=== PATIENT | female | born 1940 | race Caucasian/White ===

== ENCOUNTER 2021-12-20 05:19 | Observation (INO) | payer OTHER ==
[~2021-12-20] VITALS: Ht 172.7 cm; Wt 82.2 kg
[2021-12-20 05:19] VITALS: BP 181/127
--- NOTE | 2021-12-20 05:23 | NUR ---
PT BIBA ALS ER BED 8
--- NOTE | 2021-12-20 05:30 | NUR ---
PER PATIENT SHE ALSO HAS HX OF RENAL PROBLEMS BUT IS NOT CURRENTLY GETTING TX OR DIALYSIS. PT HAS DM, NO MEDICATION TAKEN. MANAGES THROUGH DIET. SHE IS ABLE TO AMBULATE WITH ASSISTANCE. USES A WALKER AT HOME.
--- NOTE | 2021-12-20 05:30 | NUR ---
IV ESTABLISHED 20G RIGHT FA, BLOOD COLLECTED AND SWAB COLLECTED. WALKED TO LAB
--- NOTE | 2021-12-20 05:30 | NUR ---
81/BIBA FROM HOME WITH C/O DIFF OF BREATHING , COUGH . PT ON NON REBREATHER 15 L, 86% SAO2 WHEN ARRIVED TO THE ED. PATIENT STATED COUGH/SOB STARTED YESTERDAY BUT EXACERBATED THIS MORNING. PATIENT STATED SHE HAS COPD AND USES OXYGEN AT HOME. DENIES ANYONE AT HOME BEING SICK. PATIENT DENIES N/V/D/C/CP/FEVER AT THIS TIME. RT AT BEDSIDE, PLACED ON NC 6L. PATIENT APPEARS TO BE CONGESTED AND HAS A PRODUCTIVE COUGH. PT RR APPEAR TO BE EVEN AND LABORED AT THIS TIME. PATIENT EKG TACHY @128 AND DIAPHORETIC. SKIN APPEARS INTACT BUT HAS SOME DISCOLORATION. CAP REFIL <3SEC. PATIENT PLACED IN GOWN AND CADMIUM PLATER. COVERED WITH BLANKET. BED LOW AND LOCKED. PHIL SIDE RAILS UP FOR SAFETY. MD AT BEDSIDE ASSESSING PATIENT. PMHX COPD, DM, FIBROMYALGIA, HTN MEDS SEE MED REC. NKA
--- NOTE | 2021-12-20 05:34 | NUR ---
DR HINTON EXAM. PT
[2021-12-20] MEDS ORDERED: methylPREDNISolone SS 125 MG/2 ML VIAL IVP ONE (05:40)
[2021-12-20] MEDS ORDERED: ALBUTEROL SULFATE/IPRATROPIU 3 ML SOL IH ONE (05:40)
--- NOTE | 2021-12-20 05:53 | NUR ---
RT AT [facility]
--- NOTE | 2021-12-20 06:02 | NUR ---
RAD AT BEDSIDE
--- NOTE | 2021-12-20 06:02 | NUR ---
RT AT BEDSIDE
[2021-12-20 06:15] LABS: BASOPHILS # (AUTO) 0.1 K/uL (0.00-0.22); BASOPHILS % (AUTO) 0.7 % (0.0-2.0); EOSINOPHILS % (AUTO) 0.1 % (0.0-4.0); HEMATOCRIT 35.6 % (36-48); HEMOGLOBIN 11.3 g/dL (12.0-16.0); LYMPHOCYTES # (AUTO) 0.9 K/uL (2.5-16.5); LYMPHOCYTES % (AUTO) 5.8 % (20.5-51.1); MEAN CORPUSCULAR HEMOGLOBIN 27 pg (27-31); MEAN CORPUSCULAR HGB CONC 32 g/dL (33-37); MEAN CORPUSCULAR VOLUME 86.1 fL (80-94); MONOCYTES # (AUTO) 1.1 K/uL (0.8-1.0); MONOCYTES % (AUTO) 7.1 % (1.7-9.3); NEUTROPHILS # (AUTO) 13.5 K/uL (1.8-7.7); PLATELET COUNT (AUTO) 191 K/uL (140-450); RED BLOOD CELL COUNT(AUTO) 4.13 MIL/uL (4.20-5.40); RED CELL DISTRIBUTION WIDTH 16.2 % (11.6-13.7); WHITE BLOOD COUNT (AUTO) 15.6 K/uL (4.8-10.8)
[2021-12-20] MEDS ORDERED: FUROSEMIDE 40 MG/4 ML VIAL IVP ONE (06:15)
--- NOTE | 2021-12-20 06:15 | NUR ---
SPOKE TO DAUGHTER HALIE AND UPDATED ON PATIENTS STATUS. WOULD LIKE TO BE UPDATED ON STATUS.
[2021-12-20] MEDS ORDERED: CYCL-711 PO (06:21)
[2021-12-20] MEDS ORDERED: PRON INH (06:21)
[2021-12-20] MEDS ORDERED: PREG150C PO (06:21)
[2021-12-20] MEDS ORDERED: TRAM50TA1 PO (06:21)
[2021-12-20] MEDS ORDERED: AMLO10TA PO (06:21)
[2021-12-20] MEDS ORDERED: AMAN50SY PO (06:21)
[2021-12-20 06:32] LABS: PROTHROMBIN TIME 10.9 secs (10.8-13.4)
[2021-12-20 06:35] LABS: NEUTROPHILS % (AUTO) 86.3 % (42.2-75.2)
--- NOTE | 2021-12-20 06:35 | NUR ---
REPOSITONED PATIENT IN BED FOR COMFORT. HOB ELEVATED WITH NC ON 6/L. PHIL SIDE RAILS UP FOR SAFETY.
[2021-12-20] MEDS ORDERED: AZITHROMYCIN 500 MG in DEXTROSE 5% 250 ML IV ONE (06:45)
[2021-12-20] MEDS ORDERED: cefTRIAXone 1,000 MG VIAL ONE (06:47)
[2021-12-20 06:49] LABS: ALBUMIN 3.1 g/dL (3.4-5.0); ANION GAP 13.1 (8-16); ASPARTATE AMINOTRANSFERASE 24 U/L (15-37); CARBON DIOXIDE 30.6 mmol/L (21-32); CHLORIDE 102 mmol/L (98-107); CREATININE 1.3 mg/dL (0.6-1.3); GLUCOSE 127 mg/dL (74-106); POTASSIUM 3.7 mmol/L (3.5-5.1); SODIUM SERUM 142 mmol/L (136-145); TOTAL BILIRUBIN 0.8 mg/dL (0.0-1.0); UREA NITROGEN, BLOOD 19 mg/dL (7-18)
--- NOTE | 2021-12-20 06:59 | NUR ---
REPOSITONED PATIENT IN BED FOR COMFORT. HOB ELEVATED WITH NC ON 6/L. PHIL SIDE RAILS UP FOR SAFETY.
[2021-12-20] MEDS ORDERED: AZITHROMYCIN 500 MG INJ VIAL IV ONE (07:01)
--- NOTE | 2021-12-20 07:15 | NUR ---
SPOKE TO ALMOND SORTER MYKEL. GAVE CLINICALS. STATED SHE WOULD CALL BACK WITH AUTHORIZATION NUMBER
--- NOTE | 2021-12-20 07:15 | NUR ---
REPORT GIVEN TO SHANNAN ROMAN. TRANSFER OF CARE.
--- NOTE | 2021-12-20 07:16 | NUR ---
REPORT RECEIVED FROM ALLI CAMPBELL. ASSUMED CARE AT THIS TIME
--- NOTE | 2021-12-20 07:30 | NUR ---
SPOKE TO MYKEL RECEIVED AN AUTHORIZATION NUMBER FOR ADMISSION UNDER OBSERVATION UNTIL CLINICALS ARE RECEIVED. THEN THEY WOULD UPDATE STATUS. AUTHORIZATION NUMBER [id number] FAX NUMBER [phone]
[2021-12-20] MEDS ORDERED: ASPIRIN 325 MG TAB PO ONE (07:40)
[2021-12-20] MEDS ORDERED: ENOXAPARIN 80 MG/0.8 ML SYR SUBQ ONE (07:40)
[2021-12-20 08:18] LABS: APPEARANCE,URINE CLEAR (CLEAR); BILIRUBIN,URINE NEGATIVE (NEGATIVE); BLOOD, URINE TRACE-I (NEGATIVE); COLOR,URINE YELLOW (YELLOW); LEUKOCYTE ESTERASE ,URINE NEGATIVE (NEGATIVE); NITRITE, URINE NEGATIVE (NEGATIVE); PH,URINE 5.5 (5.0-9.0); UGLUCOSE NEGATIVE (NEGATIVE)
--- NOTE | 2021-12-20 08:25 | NUR ---
PT GOWN AND LINENS CHANGED. PUREWICK IN PLACE
--- NOTE | 2021-12-20 08:30 | NUR ---
PT PROVIDED WITH BREAKFAST. PT AWAKE AND EATING IN BED
[2021-12-20 08:54] LABS: OTHER CASTS, URINE None Seen /LPF (None Seen); RBC,URINE 0-5 /HPF (0-5)
[2021-12-20] MEDS ORDERED: DOCUSATE SODIUM 100 MG GELCAP PO PRN (09:00)
[2021-12-20] MEDS ORDERED: ONDANSETRON 4 MG/2 ML VIAL IM/IVP PRN (09:00)
[2021-12-20] MEDS ORDERED: ACETAMINOPHEN 325 MG TAB PO PRN (09:00)
[2021-12-20] MEDS ORDERED: ALBUTEROL 0.083% 2.5 MG/3 ML NEBU INH PRN (09:05)
[2021-12-20] MEDS ORDERED: CYCLOBENZAPRINE 10 MG TAB PO PRN (09:05)
[2021-12-20] MEDS: METOPROLOL 25 MG TAB PO SCH ×2 (09:45→20:54)
[2021-12-20] MEDS: lisinopriL 5 MG TAB PO SCH (09:46)
--- NOTE | 2021-12-20 09:59 | NUR ---
LAB AT BEDSIDE Addendum: 12/20/21 at 0959 by PHSEP TROPONIN RE DRAW
[2021-12-20 10:25] LABS: WBC,URINE 0-5 /HPF (0-5)
[2021-12-20 10:38] LABS: MAGNESIUM 1.5 mg/dL (1.8-2.4); PHOSPHORUS 3.9 mg/dL (2.5-4.9)
--- NOTE | 2021-12-20 10:51 | NUR ---
DR TOVAR AT BEDSIDE FOR EVALUATION
--- NOTE | 2021-12-20 12:00 | NUR ---
PT PROVIDED WITH LUNCH. PT AWAKE AND EATING IN BED
--- NOTE | 2021-12-20 14:13 | NUR ---
ULTRASOUND AT BEDSIDE
[2021-12-20] MEDS: methylPREDNISolone SS 40 MG/ML VIAL IVP SCH ×2 (15:30→20:53)
[2021-12-20] MEDS: LEVOFLOXACIN 500 MG/D5W PREMIX 100 ML IV SCH (15:32)
[2021-12-20] MEDS: FUROSEMIDE 40 MG/4 ML VIAL IVP SCH (17:06)
--- NOTE | 2021-12-20 17:55 | NUR ---
PT SWABBED FOR COVID(NOVEL). SPECIMEN WALKED TO LAB
--- NOTE | 2021-12-20 17:57 | NUR ---
PT PROVIDED WITH DINNER. PT AWAKE, REPOSITIONED AND SITTING UP IN BED
[2021-12-20] MEDS: ALBUTEROL SULFATE/IPRATROPIU 3 ML SOL IH SCH (19:00)
[2021-12-20] MEDS: BUDESONIDE 0.5 MG/2 ML NEBU INH SCH (19:30)
--- NOTE | 2021-12-20 19:30 | NUR ---
IV ESTABLISHED 22G LEFT FA
--- NOTE | 2021-12-20 19:30 | NUR ---
REPORT GIVEN TO ALLI CAMPBELL. TRANSFER OF CARE AT THIS TIME
--- NOTE | 2021-12-20 19:50 | NUR ---
Patient will be admitted to care of MD TOVAR. Admited to TELEMETRY. Will go to room 124B. Belongings list completed. Report to BLAIR BAKER.
[2021-12-20 20:05] VITALS: BP 165/65
--- NOTE | 2021-12-20 20:05 | NUR ---
RECEIVED REPORT FROM ER NURSE, PATIENT AMBULATED TO THE BED WITH ASSIST, STEADY GAIT. NOTED TO BE SHORT OF BREATH, ON 6L NASAL CANNULA SAT 93%. PATIENT IS AWAKE,ALERT AND ORIENTED. DENIES PAIN. SKIN WARM, AND DRY TO TOUCH. ORIENTED TO MST ROUTINE, UPDATED WHITEBOARD. MADE COMFORTABLE IN BED, CALL LIGHT WITHIN REACH, INTRUCTIONS ON USE DONE, RETURNED DEMONSTRATED BY PATIENT.
--- NOTE | 2021-12-20 21:00 | NUR ---
NO SHORTNESS OF BREATH NOTED AT THIS TIME. PATIENT CURRENTLY WATCHING TV. CALL LIGHT WITHIN REACH.
[2021-12-20] MEDS: guaiFENesin DM 200/20 MG-10 ML 10 ML UDC PO PRN (22:04)
[2021-12-20 22:29] LABS: BARBITURATE, URINE NEGATIVE ng/ml (NEG <=200); BENZODIAZEPINE, URINE NEGATIVE ng/mL (NEG <=200); CANNABINOID, URINE NEGATIVE ng/mL (NEG <=50); COCAINE, URINE NEGATIVE ng/mL (NEG <=300); OPIATE, URINE NEGATIVE ng/mL (NEG <=2000); PHENCYCLIDINE SCREEN,URINE NEGATIVE ng/mL (NEG <=25)
[2021-12-20] MEDS: ZOLPIDEM 5 MG TAB PO PRN (22:40)
--- NOTE | 2021-12-20 23:10 | NUR ---
PER PATIENT:" I FEEL TOO MUCH AIR WITH THIS OXYGEN, I ONLY GET 2L AT HOME." DECREASED O2 TO 4L SAT AT 88-90%. PER PATIENT " I FEEL OK."
--- NOTE | 2021-12-20 23:13 | NUR ---
RT AT THE BEDSIDE, BREATHING TREATMENT DONE.
[2021-12-21] VITALS: BP 155/66
--- NOTE | 2021-12-21 00:22 | NUR ---
PATIENT ASLEEP AT THIS TIME. O2 -4L SAT AT 91%. NO S/SX ACUTE RESPIRATORY DISTRESS AT THIS TIME. CALL LIGHT WITHIN REACH.
[2021-12-21] MEDS: ALBUTEROL SULFATE/IPRATROPIU 3 ML SOL IH SCH ×4 (01:00→19:02)
--- NOTE | 2021-12-21 01:30 | NUR ---
PERINEAL CARE RENDERED, CHANGED PUREWICK, PULLED UP AND REPOSITIONED FOR COMFORT. CALL LIGHT WITHIN REACH.
[2021-12-21] MEDS: HYDROcodone/APAP 7.5/325 MG 1 TAB PO PRN ×2 (03:44→20:34)
[2021-12-21 04:00] VITALS: BP 151/73
[2021-12-21] MEDS: methylPREDNISolone SS 40 MG/ML VIAL IVP SCH ×3 (04:11→20:37)
[2021-12-21] MEDS: guaiFENesin DM 200/20 MG-10 ML 10 ML UDC PO PRN (04:12)
[2021-12-21 05:45] LABS: CARBON DIOXIDE 31.8 mmol/L (21-32); CHLORIDE 102 mmol/L (98-107); CREATININE 1.3 mg/dL (0.6-1.3); GLUCOSE 146 mg/dL (74-106); SODIUM SERUM 143 mmol/L (136-145); UREA NITROGEN, BLOOD 26 mg/dL (7-18)
[2021-12-21 05:50] LABS: BASOPHILS % (AUTO) 0.1 % (0.0-2.0); HEMATOCRIT 31.1 % (36-48); HEMOGLOBIN 10.2 g/dL (12.0-16.0); LYMPHOCYTES # (AUTO) 0.6 K/uL (2.5-16.5); LYMPHOCYTES % (AUTO) 5.7 % (20.5-51.1); MEAN CORPUSCULAR HEMOGLOBIN 28 pg (27-31); MEAN CORPUSCULAR HGB CONC 33 g/dL (33-37); MEAN CORPUSCULAR VOLUME 85.3 fL (80-94); MONOCYTES # (AUTO) 0.4 K/uL (0.8-1.0); MONOCYTES % (AUTO) 3.4 % (1.7-9.3); NEUTROPHILS # (AUTO) 9.8 K/uL (1.8-7.7); NEUTROPHILS % (AUTO) 90.8 % (42.2-75.2); PLATELET COUNT (AUTO) 182 K/uL (140-450); RED BLOOD CELL COUNT(AUTO) 3.65 MIL/uL (4.20-5.40); RED CELL DISTRIBUTION WIDTH 16.2 % (11.6-13.7); WHITE BLOOD COUNT (AUTO) 10.8 K/uL (4.8-10.8)
--- NOTE | 2021-12-21 06:09 | NUR ---
PATIENT IS AWAKE, ALERT AND ORIENTED. PER PT;" I FEEL BETTER." NO RESPIRATORY DISTRESS NOTED. ALL NEEDS ATTENDED TO. SAFETY PRECAUTIONS MAINTAINED DURING THE SHIFT, CALL LIGHT REMAINED WITHIN REACH.
[2021-12-21 06:50] LABS: POTASSIUM 2.8 mmol/L (3.5-5.1)
--- NOTE | 2021-12-21 07:28 | NUR ---
RECEIVED REPORT FROM BICYCLE RACER NURSE FOR CONTINUITY OF CARE. PT ASLEEP IN BED. ON 4L O2 NC BREATHING SYMMETRICAL. FLA 22G, ON SALINE LOCK. FLACC O. PER REPORT PT'S K LEVEL IS 2.8, DR KAY MADE AWARE WITH NEW ORDER MADE. PUREWICK IN PLACE. CALL LIGHT WITHIN REACH. ALL SAFETY MEASURES IN PLACE.
[2021-12-21] MEDS: BUDESONIDE 0.5 MG/2 ML NEBU INH SCH ×2 (07:44→19:02)
[2021-12-21 08:00] VITALS: BP 139/56
[2021-12-21] MEDS ORDERED: KCL 20 MEQ/WATER INJ PREMIX 200 ML IV SCH (08:00)
[2021-12-21] MEDS: lisinopriL 5 MG TAB PO SCH (08:43)
[2021-12-21] MEDS: METOPROLOL 25 MG TAB PO SCH (08:45)
[2021-12-21] MEDS: POTASSIUM CHLORIDE 10 MEQ TABER PO PRN (08:45)
[2021-12-21] MEDS: PREGABALIN 50 MG CAP PO SCH (08:45)
[2021-12-21] MEDS: FUROSEMIDE 40 MG/4 ML VIAL IVP SCH ×2 (08:46→16:56)
--- NOTE | 2021-12-21 09:03 | NUR ---
SCHEDULED AM MEDICATIONS GIVEN ORDERED. PRN KDUR ALSO GIVEN FOR K LEVEL 2.8
--- NOTE | 2021-12-21 09:41 | NUR ---
PATIENT HAS BEEN SCREENED AND CATEGORIZED MODERATE NUTRITION RISK. PATIENT WILL BE SEEN WITHIN 3-5 DAYS OF ADMISSION. / LISA HUGO RD
--- NOTE | 2021-12-21 11:30 | NUR ---
SECOND BAG OF K RIDER INFUSING.
[2021-12-21 12:00] VITALS: BP 137/55
--- NOTE | 2021-12-21 13:47 | NUR ---
PT AWAKE IN BED. ON 4L NC, BREATHING SYMMETRICAL. NO C/O PAIN AT THIS TIME. CALL LIGHT WITHIN REACH
[2021-12-21] MEDS: LEVOFLOXACIN 500 MG/D5W PREMIX 100 ML IV SCH (15:28)
--- NOTE | 2021-12-21 15:57 | NUR ---
PT C/O FEELING ANXIOUS, VERBALIZED "I FEEL LIKE JUMPING OUT OF HERE" NO PRN AT THIS TIME, DR KAY MADE AWARE WITH NEW ORDER MADE.
[2021-12-21 16:00] VITALS: BP 166/78
[2021-12-21] MEDS ORDERED: ALPRAZolam 0.5 MG TAB PO SCH (16:00)
[2021-12-21] MEDS: ALPRAZolam 0.5 MG TAB PO SCH ×2 (16:08→20:36)
--- NOTE | 2021-12-21 18:36 | NUR ---
REPEAT K LEVEL 2.9 FROM 2.8 DESPITE KDUR 40MEQ AND K RIDER 40MEQ BEING GIVEN. DR KAY MADE AWARE WITH ORDER TO GIVE KDUR 40MEQ
[2021-12-21] MEDS ORDERED: POTASSIUM CHLORIDE 10 MEQ TABER PO SCH (18:41)
--- NOTE | 2021-12-21 19:20 | NUR ---
ENDORSED PT TO DIETARY WORKER NURSE FOR CONTINUITY OF CARE
[2021-12-21 20:00] VITALS: BP 153/94
--- NOTE | 2021-12-21 20:00 | NUR ---
OPENING NOTE PT IN BED C/O OF PAIN AT A 7/1Q. PT IS A/O X 4. ALLERGIES TO: MORPHINE AND CORTISONE. SKIN INTACT (ECCHYMOSIS NOTED ON BUE, BLE). PT HAS A RAC AND LAC 20G PIV. PT HAS D5 1/2 NS RUNNING @ 70ML/HR. PT USES BED VALLEJO ON BEDREST. BED IN LOWEST POSITION, CALL LIGHT IN REACH, HOB ELEVATED, SIDE RAILS X2. WILL CONTINUE TO MONITOR.
[2021-12-21] MEDS: METOPROLOL 50 MG TAB PO SCH (20:37)
[2021-12-21] MEDS: ZOLPIDEM 5 MG TAB PO PRN (20:38)
[2021-12-22] VITALS: BP 143/75
[2021-12-22] MEDS: ALBUTEROL SULFATE/IPRATROPIU 3 ML SOL IH SCH ×3 (01:00→14:09)
[2021-12-22 04:00] VITALS: BP 146/89
[2021-12-22] MEDS: ALPRAZolam 0.5 MG TAB PO SCH ×2 (05:00→12:49)
[2021-12-22 06:18] LABS: ANION GAP 9.9 (8-16); CARBON DIOXIDE 35.4 mmol/L (21-32); CHLORIDE 105 mmol/L (98-107); CREATININE 1.4 mg/dL (0.6-1.3); GLUCOSE 153 mg/dL (74-106); POTASSIUM 3.3 mmol/L (3.5-5.1); SODIUM SERUM 147 mmol/L (136-145); UREA NITROGEN, BLOOD 33 mg/dL (7-18)
[2021-12-22] MEDS: methylPREDNISolone SS 40 MG/ML VIAL IVP SCH ×2 (06:18→12:40)
[2021-12-22 06:53] LABS: BASOPHILS % (AUTO) 0.1 % (0.0-2.0); HEMATOCRIT 33.4 % (36-48); HEMOGLOBIN 10.8 g/dL (12.0-16.0); LYMPHOCYTES # (AUTO) 0.6 K/uL (2.5-16.5); LYMPHOCYTES % (AUTO) 5.8 % (20.5-51.1); MEAN CORPUSCULAR HEMOGLOBIN 28 pg (27-31); MEAN CORPUSCULAR HGB CONC 32 g/dL (33-37); MEAN CORPUSCULAR VOLUME 85.9 fL (80-94); MONOCYTES # (AUTO) 0.4 K/uL (0.8-1.0); MONOCYTES % (AUTO) 4.2 % (1.7-9.3); NEUTROPHILS # (AUTO) 9.1 K/uL (1.8-7.7); NEUTROPHILS % (AUTO) 89.9 % (42.2-75.2); PLATELET COUNT (AUTO) 233 K/uL (140-450); RED BLOOD CELL COUNT(AUTO) 3.88 MIL/uL (4.20-5.40); RED CELL DISTRIBUTION WIDTH 16.6 % (11.6-13.7); WHITE BLOOD COUNT (AUTO) 10.1 K/uL (4.8-10.8)
[2021-12-22 07:26] LABS: CHOL/HDL RATIO 4.5 (1-4.5)
[2021-12-22 08:00] VITALS: BP 162/76
--- NOTE | 2021-12-22 08:00 | NUR ---
RECEIVED REPORT FROM RASHMI PINTO. PT A/O X3. ABLE TO MAKE NEEDS KNOWN. PT C/O MEDICATIONS. MEDICATIONS EXPLAINED TO PT AND PT VERBALIZED UNDERSTANDING. PT WITH NO MORE COMPLAINTS. PT ON 4L NC WITH HUMIDIFIER WITH O2 SATURATION @ 94%. HOB ELEVATED. PUREWICK IN PLACE WITH CONTINUOUS SUCTION. CANNISTER FULL. 1000 ML EMPTIED. PT REPOSITIONED WITH CHERRY PICKER OPERATOR ASSISTANCE. PT TOLERATED WELL. HOB ELEVATED, BED IN LOWEST POSITION, SAFETY PRECAUTIONS IN PLACE.
--- NOTE | 2021-12-22 08:08 | NUR ---
RECEIVED ON HUMIDIFIED SUPPLEMENTAL OXYGEN AT 4 FURNITURE FABRICATOR VIA NC SATURATION 95% POST HHN THERAPY'S TITRATED FIO2 TO 3 LPM MONICA/RN NOTIFIED
[2021-12-22] MEDS: BUDESONIDE 0.5 MG/2 ML NEBU INH SCH (08:17)
[2021-12-22] MEDS ORDERED: ECOTRIN 81 MG TABEC PO SCH (09:00)
[2021-12-22] MEDS: FUROSEMIDE 40 MG/4 ML VIAL IVP SCH (09:00)
[2021-12-22] MEDS: METOPROLOL 50 MG TAB PO SCH (09:00)
[2021-12-22] MEDS: PREGABALIN 50 MG CAP PO SCH (09:01)
[2021-12-22] MEDS: lisinopriL 5 MG TAB PO SCH (09:02)
[2021-12-22] MEDS: POTASSIUM CHLORIDE 10 MEQ TABER PO PRN (09:02)
--- NOTE | 2021-12-22 09:02 | NUR ---
PRN KDUR GIVEN.
--- NOTE | 2021-12-22 10:31 | NUR ---
PHYSICAL THERAPY CO-SIGN The Physical Therapy Progress Notes documented by Insurance Sales Producer have been reviewed. Reviewed/Co-Signed by: Kayley Fermin Documentation Done by: MARKO AMIN PTA Addendum: 12/22/21 at 1032 by Kayley Fermin PT Amended: Links added.
[2021-12-22] MEDS ORDERED: LISI-487 PO (11:49)
[2021-12-22] MEDS ORDERED: ASPI-1822 PO (11:49)
[2021-12-22] MEDS ORDERED: FURO-570 PO (11:49)
[2021-12-22] MEDS ORDERED: POTA10TA70 PO (11:49)
[2021-12-22] MEDS: LEVOFLOXACIN 500 MG/D5W PREMIX 100 ML IV SCH (12:40)
[2021-12-22] MEDS: HYDROcodone/APAP 7.5/325 MG 1 TAB PO PRN (12:50)
[2021-12-22 14:48] VITALS: BP 131/69
[2021-12-22 16:00] VITALS: BP 142/65
[2021-12-22] MEDS ORDERED: FUROSEMIDE 40 MG TAB PO SCH (17:00)
--- NOTE | 2021-12-22 18:00 | NUR ---
PT TAKEN OFF PUREWICK AND BRIEFS GIVEN PER PT REQUEST. IV DISCONTINUED. PT STATES TRANSPORTATION VIA FAMILY VEHICLE WILL BE LATE. PT ON 4L NC WITH HUMIDIFIER. PT ASSISTED TO WHEELCHAIR. AWAITING PT'S TRANSPORTATION. PT'S IV DISCONTINUED, CATHETER INTACT, NO ACTIVE BLEEDING. NEEDS ALL MET AT THIS TIME. SAFETY MEASURES IN PLACE.
--- NOTE | 2021-12-22 19:00 | NUR ---
PT WHEELED OUT VIA WHEELCHAIR WITH DAUGHTER.
== END 2021-12-22 19:00 | disposition home or self-care (01) ==
LOC: MED 05:19 → INTOOBSV 08:06 → MTU 08:06
PROVIDERS: ADMIT Student in an Organized Health Care Education/Training Program; ATTEND Student in an Organized Health Care Education/Training Program
DX: J96.21 Acute and chronic respiratory failure with hypoxia (principal); Z20.822 Contact with and (suspected) exposure to COVID-19; J44.1 Chronic obstructive pulmonary disease with (acute) exacerbation; J18.9 Pneumonia, unspecified organism; I21.4 Non-ST elevation (NSTEMI) myocardial infarction; I11.0 Hypertensive heart disease with heart failure; I50.23 Acute on chronic systolic (congestive) heart failure; E83.42 Hypomagnesemia; E44.1 Mild protein-calorie malnutrition; D64.9 Anemia, unspecified; M79.7 Fibromyalgia; I42.9 Cardiomyopathy, unspecified; E86.0 Dehydration; E66.9 Obesity, unspecified; Z87.891 Personal history of nicotine dependence; Z86.718 Personal history of other venous thrombosis and embolism; Z79.899 Other long term (current) drug therapy
CPT/HCPCS: 36415; 36600; 71045; 80048; 80053; 80061; 80305; 81001; 82150; 82550; 82553; 82803; 83605; 83690; 83735; 83880; 84100; 84132; 84484; 85025; 85379; 85610; 85730; 87040; 87081; 87086; 87426; 87635; 93005; 93307; 93970; 94640; 94760; 96361; 96365; 96366; 96367; 96375; 96376; 97112; 97116; 97163; 97530; 99285; G0378; J0456; J0696; J1650; J1940; J1956; J2920; J2930; J3480; J7613; J7626; Q0092; C8929